=== PATIENT | female | born 1935 | race African-American/Black ===

== ENCOUNTER 2018-03-30 17:35 | Inpatient (IN) | payer OTHER ==
[~2018-03-30] VITALS: Ht 167.6 cm; Wt 65.4 kg
[~2018-03-30 17:35] MED LIST: ATOR10TA PO; CARV3.12 PO; CEPH-264 PO; LOSA25TA PO
--- NOTE | 2018-03-30 18:46 | PHYS DOC ---
Past Medical History Past Medical History: Arthritis, COPD, Diabetes-Type II, Heart Disease, Hypertension, UTI Past Surgical History: , Hysterectomy Alcohol Use: None Drug Use: None Adult General Chief Complaint Chief Complaint: WEAKNESS/GENERALIZED HPI HPI Patient is a 83 year old female who presents with generalized weakness. The patient lives at home with her daughter and granddaughter who provided her Gen. day today care. The granddaughter is present and is the primary historian. She reports that the patient has had some dyspnea and intermittent episodes of confusion over the last 48 hours area she has not had a fever, but her family reports that she has had similar symptoms in the past which were associated with urinary tract infections. Family has also noticed the patient to have some intermittent episodes of dyspnea over the same time. The patient currently denies complaints. No chest pain. She denies feeling short of breath subjectively although she does have mild increased work of breathing with simple short sentence conversations. The patient also is known to have significant osteoarthritis and frequently has flares for which she is treated with NSAID medications at home. Review of Systems Review of Systems Constitutional: Denies fever Eyes: Denies HENT: Denies nasal congestion Respiratory: Denies cough Cardiovascular: No additional information not addressed in HPI GI: Denies abdominal pain, nausea : Denies dysuria Musculoskeletal: Denies back pain Integument: Denies rash or skin lesions Neurologic: Denies headache, or focal neuro complaints Endocrine: Denies polyuria All other systems were reviewed and found to be within normal limits, except as documented in this note. Current Medications Current Medications Current Medications Medications (Trade) Dose Ordered Sig/Dread Start Time Stop Time Status Last Admin Dose Admin Sodium Chloride 500 ml @ 250 mls/hr 1X ONCE 03/30/18 20:00 03/30/18 21:59 DC 03/30/18 20:00 250 MLS/HR Allergies Allergies Allergies Coded Allergies Type Severity Reaction Last Updated Verified aspirin Allergy Intermediate 04/29/14 No Physical Exam Physical Exam Constitutional: Well developed, well nourished, no acute distress HENT: Normocephalic, atraumatic, bilateral external ears normal, oropharynx moist Eyes: PERRLA, EOMI, conjunctiva normal Neck: Normal range of motion, no JVD, no bruits Cardiovascular:Heart rate regular rhythm, no murmur Lungs & Thorax: Bilateral breath sounds clear to auscultation Abdomen: Bowel sounds normal, soft, no tenderness Skin: Warm, dry, no erythema Back: No tenderness Extremities: 2+ edema bilateral LE's Neurologic: Alert and oriented X 3, normal motor function Psychologic: Affect normal Current Patient Data Vital Signs Vital Signs Date Time Temp Pulse Resp B/P (MAP) Pulse Ox O2 Delivery O2 Flow Rate FiO2 03/30/18 21:13 85 18 93 03/30/18 17:53 97.7 135/96 (109) Room Air 97.7 Lab Values Laboratory Tests Test 03/30/18 18:42 03/30/18 19:43 03/30/18 20:30 Urine Collection Type U cath Urine Color Ashlee Urine Clarity Cloudy Urine pH 7.0 Urine Specific [place] 1.020 Urine Protein >=300 mg/dL (NEG-TRACE) Urine Glucose (UA) Negative mg/dL (NEG) Urine Ketones (Stick) Negative mg/dL (NEG) Urine Blood Trace (NEG) Urine Nitrite Negative (NEG) Urine Bilirubin Small (NEG) Urine Urobilinogen Dipstick 1.0 mg/dL (0.2 mg/dL) Urine Leukocyte Esterase Small (NEG) Urine RBC Occ /HPF (0-2) Urine WBC 1-4 /HPF (0-4) Urine Squamous Epithelial Cells Few /LPF Urine Bacteria Many /HPF (0-FEW) White Blood Count 6.8 x10^3/uL (4.0-11.0) Red Blood Count 4.84 x10^6/uL (3.50-5.40) Hemoglobin 13.9 g/dL (12.0-15.5) Hematocrit 42.8 % (36.0-47.0) Mean Corpuscular Volume 89 fL (79-100) Mean Corpuscular Hemoglobin 29 pg (25-35) Mean Corpuscular Hemoglobin Concent 33 g/dL (31-37) Red Cell Distribution Width 16.8 % (11.5-14.5) H Platelet Count 166 x10^3/uL (140-400) Neutrophils (%) (Auto) 79 % (31-73) H Lymphocytes (%) (Auto) 13 % (24-48) L Monocytes (%) (Auto) 7 % (0-9) Eosinophils (%) (Auto) 0 % (0-3) Basophils (%) (Auto) 1 % (0-3) Neutrophils # (Auto) 5.4 x10^3uL (1.8-7.7) Lymphocytes # (Auto) 0.9 x10^3/uL (1.0-4.8) L Monocytes # (Auto) 0.5 x10^3/uL (0.0-1.1) Eosinophils # (Auto) 0.0 x10^3/uL (0.0-0.7) Basophils # (Auto) 0.0 x10^3/uL (0.0-0.2) Sodium Level 147 mmol/L (136-145) H Potassium Level 4.0 mmol/L (3.5-5.1) Chloride Level 107 mmol/L (98-107) Carbon Dioxide Level 23 mmol/L (21-32) Anion Gap 17 (6-14) H Blood Urea Nitrogen 29 mg/dL (7-20) H Creatinine 1.2 mg/dL (0.6-1.0) H Estimated GFR (Cockcroft-Gault) 51.7 Glucose Level 108 mg/dL (70-99) H Calcium Level 9.5 mg/dL (8.5-10.1) Troponin I Quantitative 0.058 ng/mL (0.000-0.055) KC-Vfz-C-Type Natriuretic Peptide 13623 pg/mL (0-449) H Laboratory Tests 03/30/18 19:43 Laboratory Tests 03/30/18 20:30 EKG EKG Left BBB Interpretation Time: 18:20 Radiology/Procedures Radiology/Procedures FINDINGS: Heart is moderately enlarged in size. Ectatic thoracic aorta. There is a soft tissue density in the right hilum measuring 4.1 x 3.7 cm. Otherwise, lungs are clear. No pneumothorax or pleural effusion. Visualized bony thorax within normal limits. IMPRESSION: 1. No acute pulmonary process. 2. Soft tissue density in the right hilum may represent overlapping vascular shadows, lymphadenopathy or mass. Further evaluation with CT chest with IV contrast recommended. CT Head: No acute findings Course & Med Decision Making Course & Med Decision Making Pertinent Labs and Imaging studies reviewed. (See chart for details) Patient was evaluated in the emergency department for generalized weakness with some reported confusion over the last several days. The family did have concerns that this patient was having a urinary tract infection. Her urine did not appear overtly infected in the ER but a urine culture was sent. No antibiotics were started. The patient was noted to have mildly elevated troponin in the ER. Her EKG was not revealing for acute ST changes. Her BNP however was significantly elevated. She was given 40 of Lasix IV. Chest x-ray as documented above with some nonspecific findings. Recommendation was made for CT scan of the chest with IV contrast for further evaluation but this patient did not have adequate IV access to receive IV contrast. Non-con chest CT was completed. The patient was stuck multiple times for intravenous access. Ultrasound-guided attempts were also unsuccessful. Ultimately, a small 22-gauge was placed in the right EJ. Given her elevated troponin and dyspnea, patient was admitted to the hospital. I spoke to her primary physician's on-call partner , Dr. Pritchard, who agreed to admit the patient. Given her dyspnea, a V/Q scan was also ordered to be done on a routine basis tomorrow to rule out any thromboembolic disease. Dragon Disclaimer Dragon Disclaimer This electronic medical record was generated, in whole or in part, using a voice recognition dictation system. Departure Departure Referrals: NANCY PANG (PCP) OSEI STAPLES DO Mar 30, 2018 18:46
[2018-03-30 18:49] LABS: BILIRUBIN,URINE SMALL (NEG); CLARITY,URINE CLOUDY; COLOR,URINE AMBER; NITRITE,URINE NEGATIVE (NEG); PROTEIN,URINE >=300 mg/dL (NEG-TRACE)
[2018-03-30 18:53] LABS: BACTERIA,URINE MANY /HPF (0-FEW); RBC,URINE OCC /HPF (0-2)
[2018-03-30 18:54] LABS: SQUAMOUS EPITHELIAL CELL,UR FEW /LPF
[2018-03-30 19:54] LABS: BASO % 1 % (0-3); EOS % 0 % (0-3); HEMATOCRIT 42.8 % (36.0-47.0); HEMOGLOBIN 13.9 g/dL (12.0-15.5); LYMPH # 0.9 x10^3/uL (1.0-4.8); LYMPH % 13 % (24-48); MEAN CORPUSCULAR HEMOGLOBIN 29 pg (25-35); MEAN CORPUSCULAR HGB CONC 33 g/dL (31-37); MEAN CORPUSCULAR VOLUME 89 fL (79-100); MONO # 0.5 x10^3/uL (0.0-1.1); MONO % 7 % (0-9); NEUT # 5.4 x10^3uL (1.8-7.7); NEUT % 79 % (31-73); PLATELET COUNT 166 x10^3/uL (140-400); RED BLOOD COUNT 4.84 x10^6/uL (3.50-5.40); RED CELL DISTRIBUTION WIDTH 16.8 % (11.5-14.5); WHITE BLOOD COUNT 6.8 x10^3/uL (4.0-11.0)
[2018-03-30] MEDS ORDERED: IV NORMAL SALINE 500ML BAG 500 ML IV ONE (20:00)
--- NOTE | 2018-03-30 20:30 | RAD ---
Indication:WEAKNESS. HX HTN, COPD, CHF, DIABETES. NO PRIORS TECHNIQUE:Portable AP chest X-ray COMPARISON: 04/29/2014 FINDINGS: Heart is moderately enlarged in size. Ectatic thoracic aorta. There is a soft tissue density in the right hilum measuring 4.1 x 3.7 cm. Otherwise, lungs are clear. No pneumothorax or pleural effusion. Visualized bony thorax within normal limits. IMPRESSION: 1. No acute pulmonary process. 2. Soft tissue density in the right hilum may represent overlapping vascular shadows, lymphadenopathy or mass. Further evaluation with CT chest with IV contrast recommended. Electronically signed by: Anderson Ornelas DO (03/30/2018 8:27 PM) [facility]
[2018-03-30 20:52] LABS: CALCIUM 9.5 mg/dL (8.5-10.1); CREATININE 1.2 mg/dL (0.6-1.0); GFR 51.7
--- NOTE | 2018-03-30 21:13 | RAD ---
CT head without intravenous contrast History: Altered mental status. Comparison: CT head April 29, 2014. Technique: Axial images are obtained of the head from the skull base through the vertex without IV contrast. Exposure: One or more of the following individualized dose reduction techniques were utilized for this examination: 1. Automated exposure control 2. Adjustment of the mA and/or kV according to patient size 3. Use of iterative reconstruction technique Findings: The ventricles are appropriate in size, shape, and location for the patient's age. No obvious intracranial mass, mass-effect, midline shift, hemorrhage or obvious acute infarction is identified. Basilar cisterns are patent. Mild, patchy, nonspecific white matter low-attenuation seen, probably from chronic microvascular ischemic disease. Bone windows demonstrate no acute calvarial abnormality. The visualized paranasal sinuses appear clear. Impression: 1. No acute intracranial process. Please note that CT can be relatively insensitive to acute ischemic infarction for up to 24 hours after symptom onset. 2. Mild nonspecific white matter changes, probably from chronic microvascular ischemic disease. Electronically signed by: Osvaldo Marlow MD (03/30/2018 9:09 PM) [facility]
[2018-03-30] MEDS ORDERED: ONDANSETRON PF 4 MG/2 ML VIAL. IV PRN (22:00)
[2018-03-30] MEDS ORDERED: ACETAMINOPHEN 325 MG TABLET. PO PRN (22:00)
[2018-03-30] MEDS ORDERED: FUROSEMIDE 40 MG/4 ML VIAL. IVP ONE (23:55)
[2018-03-31] VITALS (7 sets, daily range): BP systolic 112–161; BP diastolic 57–96
--- NOTE | 2018-03-31 01:22 | RAD ---
EXAM: CT Chest without IV contrast CLINICAL HISTORY: possible hilar shadow or mass? CT follow-up of a prior radiographic abnormality. COMPARISON: Radiographs 03/30/2018, CT abdomen and pelvis 07/29/2007 TECHNIQUE: CT of the chest without intravenous contrast. Axial, coronal and sagittal reformatted images were generated. ---PQRS compliance statement - One or more of the following individualized dose reduction techniques were utilized for this study: 1. Automated exposure control 2. Adjustment of the mA and/or kV according to patient size 3. Use of iterative reconstruction technique--- FINDINGS: Lack of intravenous contrast limits evaluation of solid organs, vasculature, and lymph nodes. Chest: Moderate cardiomegaly. Coronary artery calcifications are seen. Trace right pleural effusion. No pneumothorax. Evaluation for mediastinal and hilar lymphadenopathy is limited on this noncontrast exam. Within these constraints no definite mediastinal or hilar lymphadenopathy. No axillary lymphadenopathy. Aorta is tortuous. Dependent opacities in the bilateral lungs likely scarring/atelectasis. No focal parenchymal airspace opacity. Calcified granuloma in the lingula is seen. Visualized Upper abdomen: Gallstones are seen within the gallbladder. Bones: Degenerative changes of the spine are seen. Mild height loss of the L2 vertebral body, age-indeterminate. IMPRESSION: 1. Evaluation for mediastinal/hilar abnormality is limited on this noncontrast exam. However the abnormality seen on prior chest radiograph in the hilum is favored to represent changes from prominent/tortuous aorta and pulmonary vessels. 2. Mild height loss of the L2 vertebral body, age-indeterminate. Electronically signed by: Neri Patel MD (03/31/2018 1:19 AM) [place] [id number]
[2018-03-31 04:36] LABS: CALCIUM 9.2 mg/dL (8.5-10.1); CREATININE 1.2 mg/dL (0.6-1.0); GFR 51.7; POTASSIUM 3.7 mmol/L (3.5-5.1)
[2018-03-31 04:44] LABS: BASO % 0 % (0-3); EOS % 0 % (0-3); HEMATOCRIT 38.7 % (36.0-47.0); HEMOGLOBIN 12.8 g/dL (12.0-15.5); LYMPH # 1.3 x10^3/uL (1.0-4.8); LYMPH % 18 % (24-48); MEAN CORPUSCULAR HEMOGLOBIN 29 pg (25-35); MEAN CORPUSCULAR HGB CONC 33 g/dL (31-37); MEAN CORPUSCULAR VOLUME 87 fL (79-100); MONO # 0.6 x10^3/uL (0.0-1.1); MONO % 9 % (0-9); NEUT # 5.3 x10^3uL (1.8-7.7); NEUT % 73 % (31-73); PLATELET COUNT 167 x10^3/uL (140-400); RED BLOOD COUNT 4.47 x10^6/uL (3.50-5.40); RED CELL DISTRIBUTION WIDTH 16.6 % (11.5-14.5); WHITE BLOOD COUNT 7.2 x10^3/uL (4.0-11.0)
--- NOTE | 2018-03-31 05:21 | EKG ---
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
[2018-03-31] MEDS ORDERED: ASPIRIN CHEWABLE 81 MG TABLET. PO ONE (09:00)
--- NOTE | 2018-03-31 09:36 | PDOC2 ---
JOAQUÍN LANG STORE CLERK CASHIER 03/31/18 0936: CARDIAC CONSULT DATE OF CONSULT Date of Consult DATE: 03/31/18 TIME: 09:23 REASON FOR CONSULT Reason for Consult: weakness, elevated trop REFERRING PHYSICIAN Referring Physician: Andres SOURCE Source: Chart review, Patient HISTORY OF PRESENT ILLNESS HISTORY OF PRESENT ILLNESS This is an 83 yo female admitted for complains of progressive weakness. Pt lives with family and currently pt is drowsy and just moans. Per chart review she has had increasing SOA and increasing confusion in the last few days. She does use NSAIDs. She is known for cardiomyopathy noted with 25% EF in 2013 but there was no known ischemic workup. There was no notation of chest pain, frequent falls or dizziness. PAST MEDICAL HISTORY Cardiovascular: CHF, HTN, Hyperlipidemia, Other (cardiomyopathy) Pulmonary: COPD Musculoskeletal: Osteoarthritis ENT: Other ([place]) Renal/: UTI Endocrine: Diabetes (2) PAST SURGICAL HISTORY Past Surgical History: , Hysterectomy SOCIAL HISTORY Smoke: Quit ALCOHOL: none Drugs: None Lives: with Family CURRENT MEDICATIONS CURRENT MEDICATIONS Current Medications Medications (Trade) Dose Ordered Sig/Dread Route PRN Reason Start Time Stop Time Status Last Admin Dose Admin Sodium Chloride 500 ml @ 250 mls/hr 1X ONCE IV 03/30/18 20:00 03/30/18 21:59 DC 03/30/18 20:00 Furosemide (Lasix) 40 mg 1X ONCE IVP 03/30/18 23:55 03/30/18 23:56 DC 03/31/18 00:13 ALLERGIES ALLERGIES: Coded Allergies: aspirin (Unverified Allergy, Intermediate, 04/29/14) ROS Review of System limited PHYSICAL EXAM General: No acute distress, Other (drowsy) Heart: Regular rate (SR LBBB), Other (4/6 systolic murmur to apex with displaced ) Extremities: Other (1+ bilateral LE pitting edema) Skin: No rashes Neuro: Other (nonverbal moans at times) Psych/Mental Status: Mental status NL, Mood NL MUSCULOSKELETAL: Osteoarthritic changes both hands VITALS VITALS Vital Signs Date Time Temp Pulse Resp B/P (MAP) Pulse Ox O2 Delivery O2 Flow Rate FiO2 03/31/18 07:00 96.7 86 20 133/95 (108) 95 Nasal Cannula 4.0 96.7 LABS Lab: Laboratory Tests Test 03/30/18 18:42 03/30/18 19:43 03/30/18 20:30 03/31/18 00:01 Urine Collection Type U cath Urine Color Ashlee Urine Clarity Cloudy Urine pH 7.0 Urine Specific [place] 1.020 Urine Protein >=300 mg/dL (NEG-TRACE) Urine Glucose (UA) Negative mg/dL (NEG) Urine Ketones (Stick) Negative mg/dL (NEG) Urine Blood Trace (NEG) Urine Nitrite Negative (NEG) Urine Bilirubin Small (NEG) Urine Urobilinogen Dipstick 1.0 mg/dL (0.2 mg/dL) Urine Leukocyte Esterase Small (NEG) Urine RBC Occ /HPF (0-2) Urine WBC 1-4 /HPF (0-4) Urine Squamous Epithelial Cells Few /LPF Urine Bacteria Many /HPF (0-FEW) White Blood Count 6.8 x10^3/uL (4.0-11.0) Red Blood Count 4.84 x10^6/uL (3.50-5.40) Hemoglobin 13.9 g/dL (12.0-15.5) Hematocrit 42.8 % (36.0-47.0) Mean Corpuscular Volume 89 fL (79-100) Mean Corpuscular Hemoglobin 29 pg (25-35) Mean Corpuscular Hemoglobin Concent 33 g/dL (31-37) Red Cell Distribution Width 16.8 % (11.5-14.5) Platelet Count 166 x10^3/uL (140-400) Neutrophils (%) (Auto) 79 % (31-73) Lymphocytes (%) (Auto) 13 % (24-48) Monocytes (%) (Auto) 7 % (0-9) Eosinophils (%) (Auto) 0 % (0-3) Basophils (%) (Auto) 1 % (0-3) Neutrophils # (Auto) 5.4 x10^3uL (1.8-7.7) Lymphocytes # (Auto) 0.9 x10^3/uL (1.0-4.8) Monocytes # (Auto) 0.5 x10^3/uL (0.0-1.1) Eosinophils # (Auto) 0.0 x10^3/uL (0.0-0.7) Basophils # (Auto) 0.0 x10^3/uL (0.0-0.2) Sodium Level 147 mmol/L (136-145) Potassium Level 4.0 mmol/L (3.5-5.1) Chloride Level 107 mmol/L (98-107) Carbon Dioxide Level 23 mmol/L (21-32) Anion Gap 17 (6-14) Blood Urea Nitrogen 29 mg/dL (7-20) Creatinine 1.2 mg/dL (0.6-1.0) Estimated GFR (Cockcroft-Gault) 51.7 Glucose Level 108 mg/dL (70-99) Calcium Level 9.5 mg/dL (8.5-10.1) Troponin I Quantitative 0.058 ng/mL (0.000-0.055) 0.055 ng/mL (0.000-0.055) QX-Xar-W-Type Natriuretic Peptide 10968 pg/mL (0-449) Test 03/31/18 01:00 03/31/18 03:50 Troponin I Quantitative 0.062 ng/mL (0.000-0.055) 0.057 ng/mL (0.000-0.055) White Blood Count 7.2 x10^3/uL (4.0-11.0) Red Blood Count 4.47 x10^6/uL (3.50-5.40) Hemoglobin 12.8 g/dL (12.0-15.5) Hematocrit 38.7 % (36.0-47.0) Mean Corpuscular Volume 87 fL (79-100) Mean Corpuscular Hemoglobin 29 pg (25-35) Mean Corpuscular Hemoglobin Concent 33 g/dL (31-37) Red Cell Distribution Width 16.6 % (11.5-14.5) Platelet Count 167 x10^3/uL (140-400) Neutrophils (%) (Auto) 73 % (31-73) Lymphocytes (%) (Auto) 18 % (24-48) Monocytes (%) (Auto) 9 % (0-9) Eosinophils (%) (Auto) 0 % (0-3) Basophils (%) (Auto) 0 % (0-3) Neutrophils # (Auto) 5.3 x10^3uL (1.8-7.7) Lymphocytes # (Auto) 1.3 x10^3/uL (1.0-4.8) Monocytes # (Auto) 0.6 x10^3/uL (0.0-1.1) Eosinophils # (Auto) 0.0 x10^3/uL (0.0-0.7) Basophils # (Auto) 0.0 x10^3/uL (0.0-0.2) Sodium Level 141 mmol/L (136-145) Potassium Level 3.7 mmol/L (3.5-5.1) Chloride Level 105 mmol/L (98-107) Carbon Dioxide Level 23 mmol/L (21-32) Anion Gap 13 (6-14) Blood Urea Nitrogen 28 mg/dL (7-20) Creatinine 1.2 mg/dL (0.6-1.0) Estimated GFR (Cockcroft-Gault) 51.7 Glucose Level 142 mg/dL (70-99) Calcium Level 9.2 mg/dL (8.5-10.1) ECHOCARDIOGRAM ECHOCARDIOGRAM <Conclusion> The left ventricle is normal size. Left ventricle systolic function is severely impaired. The Ejection Fraction is 25%. There is mild concentric left ventricular hypertrophy. There is no significant aortic valvular stenosis. Doppler and Color Flow revealed mild to moderate aortic regurgitation. Doppler and Color-flow revealed mild to moderate mitral regurgitation. Doppler and Color Flow revealed mild tricuspid valve regurgitation. The pulmonary artery systolic pressure is estimated at less than 30 mmHg. There is no evidence of significant pericardial effusion. DATE: 04/30/14 184 ASSESSMENT/PLAN ASSESSMENT/PLAN 1. Metabolic encephalopathy with dementia: unknown baseline mentation 2. Recurrent UTI? 3. Debility: ?FTT 4. Acute on Chronic systolic CHF: appears compensated. 5. Mildly elevated troponin: Peaked at 0.06 likely demand mediated, type 2. with chronic LBBB. No notation of CP 6. CKD3/macroalbuminuria 7. Hx of cardiomyopathy: past known EF at 25%. no known intervention 8. HTN: controlled 9. DM2/HLP: per PCP Recommendations 1. restart home meds. Unable to ascertain ASA allergy. If truly allergic then will place on plavix 2. TTE, TSH, lipids, Mg 3. Received lasix in ED. Swallowing needs no to be ascertained when pt is more awake. Await TTE and will place on routine lasix. 4. With advanced age, dementia and debility recommend conservative measures. Secondary prevention measures ALVARO COKER MD 04/01/18 1014: CARDIAC CONSULT ASSESSMENT/PLAN ASSESSMENT/PLAN Patient seen and examined 03/31/18. Agree with [employer]'s assessment and plan. Acute on chronic systolic heart failure better compensated 2-D echo showed LVEF 15-20% Agree with conservative management secondary to age and comorbidities Continue current treatment for UTI and metabolic encephalopathy per IM Thank you for your consultation JOAQUÍN LANG APRN Mar 31, 2018 09:36 ALVARO COKER MD Apr 01, 2018 10:14
--- NOTE | 2018-03-31 09:44 | PDOC ---
Provider Note Provider Note Pt seen.H&P done. #[id number] KRIS LAGOS MD Mar 31, 2018 09:44
[2018-03-31] MEDS ORDERED: DEXTROSE 50% 25 GM / 50ML DISP.SYRIN. IV PRN (09:45)
--- NOTE | 2018-03-31 10:18 | HP ---
ADMIT DATE: 03/30/2018 LOCATION: [facility] REASON FOR ADMISSION TO THE HOSPITAL: Congestive heart failure, elevated troponin, elevated BNP, possible UTI. HISTORY OF PRESENT ILLNESS: The patient is an 83-year-old female patient who lives at home, taken care by the family and she says she has been weak for the last couple of days, confused, was brought to the hospital. Her BNP was elevated to more than 2000. Troponin was borderline elevation. Urine shows trace leukocytes. The patient was admitted to the hospital, had a CT of the chest. CT of the head was negative. The patient has a history of chronic systolic heart failure, 25% on echo 4 years ago. PAST MEDICAL HISTORY: History of hypertension, heart disease, diabetes, COPD, arthritis, UTI. PAST SURGICAL HISTORY: Hysterectomy, . ALLERGIES: ASPIRIN. MEDICATIONS AT HOME: Atorvastatin 10 mg daily, Coreg 3.125 twice a day, losartan 25 mg daily. PERSONAL HISTORY: No history of smoking, alcohol, drug abuse. FAMILY HISTORY: Unremarkable. REVIEW OF SYSTEMS: The patient is very lethargic to review of symptoms. FAMILY HISTORY: Not available. PHYSICAL EXAMINATION: GENERAL: Elderly female. The patient is very lethargic, does not talk much, opens her eyes. VITAL SIGNS: Temperature 97, pulse 89, respirations 18, blood pressure 133/96, 93 on room air. HEENT: Head is atraumatic. Pupils are equal. Oral cavity, one or two teeth present. NECK: Supple. CHEST: Symmetrical. CARDIOVASCULAR: S1, S2. LUNGS: Clear. ABDOMEN: Soft, bowel sounds present, no mass palpable. EXTERNAL GENITALIA: No [place]. RECTAL: Deferred. EXTREMITIES: Edema in both feet and lower extremities, 1+. The patient's staff reports the patient has no good hygiene in the private areas. LABORATORY DATA: Shows a white count 7, hemoglobin 14, platelets 166. Electrolytes show sodium 147, potassium 4.0, chloride 107, bicarbonate 23, anion gap 17, BUN 29, creatinine 1.2. 0.5 troponin and then BNP was 14,821. Urine shows trace leukocyte esterase. Chest x-ray negative. EKG done, report is pending. CT head negative. FINAL IMPRESSION: 1. Chronic systolic heart failure. 2. Slight elevation in troponin. 3. Hypertension. 4. Hyperlipidemia. 5. History of diabetes. 6. Possible urinary tract infection. 7. General debility. 8. Poor general hygiene. PLAN: At this time, was to admit to the hospital, seen by Cardiology, had a CT chest and was negative. Get a V/Q scan, venous Doppler. Add echo, repeat again, IV Rocephin for UTI and waiting for the cultures to come back. KRIS LAGOS MD DR: BOBBI/desirae JOB#: [id number] / [id number] NANCY Ovalles
[2018-03-31] MEDS: ENOXAPARIN 40 MG/0.4 ML SYRINGE. SQ SCH (11:40)
[2018-03-31] MEDS: LACTOBACILLUS RHAMNOSUS GG 1 CAPSULE. PO SCH ×2 (11:40→21:28)
[2018-03-31] MEDS: cefTRIAXone IV Push 1 GM VIAL. IVP SCH (11:41)
[2018-03-31] MEDS: CARVEDILOL 3.125 MG TABLET. PO SCH ×2 (11:42→16:30)
[2018-03-31] MEDS: LOSARTAN POTASSIUM 25 MG TABLET. PO SCH (11:54)
[2018-03-31] MEDS: INSULIN LISPRO 300 UNITS/3 ML INSULN.PEN. SQ SCH ×2 (12:00→17:00)
--- NOTE | 2018-03-31 12:15 | CARD ---
MR#: [id number] Date of Study: 03/31/2018 Ordering Physician: KRIS LAGOS, Referring Physician: KRIS LAOGS, Tech: Tracy Welsh APPROVED REPORT EXAM: Two-dimensional and M-mode echocardiogram with Doppler and color Doppler. Other Information Quality : GoodHR: 79bpm INDICATION Congestive Heart Failure 2D DIMENSIONS RVDd2.1 (2.9-3.5cm)Left Atrium(2D)4.6 (1.6-4.0cm) IVSd0.9 (0.7-1.1cm)Aortic Root(2D)2.8 (2.0-3.7cm) LVDd6.5 (3.9-5.9cm)LVOT Diameter2.1 (1.8-2.4cm) PWd1.3 (0.7-1.1cm)LVDs5.9 (2.5-4.0cm) FS (%) 9.6 %SV44.6 ml LVEF(%)20.5 (>50%) Aortic Valve AoV Peak Jean Marie.171.6cm/sAoV VTI23.3cm AO Peak GR.11.8mmHgLVOT VTI 13.92cm AO Mean GR.6mmHgAI P 1/2 Vtgi192wz Mitral Valve MV E Ksaftisp664.4cm/sMV DECEL SREX993lw MV A Xgvedgic32.2cm/sE/A Ratio1.4 TDI Lateral E' P. V4.89cm/sMedial E' P. V6.44cm/s E/Lateral E'23.4E/Medial E'17.8 Tricuspid Valve TR P. Dscnfeiu788hu/sRAP PFMJXUKD35slMb TR Peak Gr.44mmHg Pulmonary Vein S1 Ypaxwsml16.4cm/sS2 Hsgfvkzn23.03cm/s D2 Ozslrjho89.0cm/s LEFT VENTRICLE The Left Ventricle is severely dilated. There is normal left ventricular wall thickness. The ejection fraction is severely impaired. The Ejection Fraction is 15-20%. There is global hypokinesis of the l eft ventricle. Tissue Doppler imaging reveals severe left ventricular diastolic dysfunction. RIGHT VENTRICLE The right ventricle is normal size. There is normal right ventricular wall thickness. The right ventr icular systolic function is normal. ATRIA The left atrium is moderately dilated. The right atrium size is normal. The interatrial septum is int act with no evidence for an atrial septal defect or patent foramen ovale as noted on 2-D or Doppler i maging. AORTIC VALVE The aortic valve is calcified and appears trileaflet. Doppler and Color Flow revealed trace aortic re gurgitation. There is no significant aortic valvular stenosis. MITRAL VALVE The mitral valve is calcified and displays decreased opening. There is no mitral valve stenosis. Dopp ler and Color-flow revealed trace mitral regurgitation. TRICUSPID VALVE The tricuspid valve leaflets are thickened , but open well. Doppler and Color Flow revealed trace tri cuspid regurgitation. RVSP 50 mm Hg There is no tricuspid valve stenosis. PULMONIC VALVE The pulmonic valve is not well visualized. Doppler and Color Flow revealed trace pulmonic valvular re gurgitation. There is no pulmonic valvular stenosis. GREAT VESSELS The aortic root is normal in size. The IVC is dilated and collapses <50% with inspiration. PERICARDIAL EFFUSION There is no evidence of significant pericardial effusion. Critical Notification Critical Value: Yes <Conclusion> The Left Ventricle is severely dilated. The ejection fraction is severely impaired. The Ejection Fraction is 15-20%. There is global hypokinesis of the left ventricle. Doppler and Color Flow revealed trace tricuspid regurgitation. RVSP 50 mm Hg The IVC is dilated and collapses <50% with inspiration. Signed by : Edgar Mclaughlin, Electronically Approved : 03/31/2018 12:14:25
--- NOTE | 2018-03-31 12:35 | RAD ---
Ventilation/perfusion lung scan, 03/31/2018: HISTORY: Dyspnea The ventilation study was performed utilizing 17 mCi of xenon-133. There is decreased ventilation of the left lung compared to the right. Correlation with the current chest radiographs indicate that much of this is due to the enlarged heart and thoracic aorta. Activity in both lungs is heterogeneous. Perfusion imaging was performed utilizing 6 mCi of technetium 99m MAA. There is relatively decreased perfusion in the left lung compared to the right, similar to that seen on the ventilation study. Due to the patient's poor clinical condition images were obtained with the patient's arms down by her side producing decreased activity on the lateral perfusion views. No definite unmatched segmental perfusion defects are seen. IMPRESSION: 1. Decreased ventilation and perfusion in the left chest. 2. Limited exam demonstrating no definite pulmonary emboli. CTA of the chest may be useful for further evaluation, if clinically indicated. Electronically signed by: Stuart Malik MD (03/31/2018 12:31 PM) [facility]
--- NOTE | 2018-03-31 14:08 | RAD ---
EXAM: Bilateral lower extremity venous Doppler sonogram. HISTORY: Edema. TECHNIQUE: Perkins scale and color Doppler sonographic evaluation of the bilateral lower extremity veins with spectral waveform analysis was performed. FINDINGS: There is normal color flow, normal compressibility and there are normal spectral waveforms in the common femoral, superficial femoral, popliteal, posterior tibial and greater saphenous veins. IMPRESSION: No Doppler evidence of lower extremity deep venous thrombosis. Electronically signed by: Breanna Varela MD (03/31/2018 2:05 PM) [place] [id number]
[2018-03-31] MEDS: FUROSEMIDE 40 MG TABLET. PO SCH (18:00)
[2018-03-31] MEDS ORDERED: ATORVASTATIN CALCIUM 10 MG TABLET. PO SCH (21:00)
[2018-04-01 03:25] VITALS: BP 112/64
[2018-04-01 05:04] LABS: ALBUMIN 2.9 g/dL (3.4-5.0); ALBUMIN/GLOBULIN RATIO 0.9 (1.0-1.7); CALCIUM 8.6 mg/dL (8.5-10.1); GFR 63.8; POTASSIUM 3.1 mmol/L (3.5-5.1); TOTAL BILIRUBIN 0.8 mg/dL (0.2-1.0); TOTAL PROTEIN 6.2 g/dL (6.4-8.2)
[2018-04-01 05:07] LABS: CHOLESTEROL/HDL RATIO 4.1
[2018-04-01 07:00] VITALS: BP 123/64
[2018-04-01] MEDS ORDERED: ASPIRIN CHEWABLE 81 MG TABLET. PO SCH (08:00)
[2018-04-01] MEDS ORDERED: POTASSIUM CHLORIDE 20 MEQ TABLET.ER. PO ONE ×3 (08:00→12:15)
[2018-04-01] MEDS: INSULIN LISPRO 300 UNITS/3 ML INSULN.PEN. SQ SCH ×3 (08:00→17:00)
[2018-04-01] MEDS ORDERED: MAGNESIUM SULFATE 2GM 50 ML IV ONE (08:30)
[2018-04-01] MEDS: FUROSEMIDE 40 MG TABLET. PO SCH (09:23)
[2018-04-01] MEDS: MAGNESIUM OXIDE 400 MG TABLET PO SCH ×2 (09:23→17:02)
[2018-04-01] MEDS: LACTOBACILLUS RHAMNOSUS GG 1 CAPSULE. PO SCH ×2 (09:23→20:45)
[2018-04-01] MEDS: CARVEDILOL 3.125 MG TABLET. PO SCH ×2 (09:24→17:03)
[2018-04-01] MEDS: LOSARTAN POTASSIUM 25 MG TABLET. PO SCH (09:28)
[2018-04-01] MEDS: ENOXAPARIN 40 MG/0.4 ML SYRINGE. SQ SCH (09:32)
[2018-04-01] MEDS: cefTRIAXone IV Push 1 GM VIAL. IVP SCH (09:33)
--- NOTE | 2018-04-01 09:48 | PDOC ---
PROGRESS NOTES Subjective Subjective says 1-2 words not conversational Objective Objective Vital Signs Date Time Temp Pulse Resp B/P (MAP) Pulse Ox O2 Delivery O2 Flow Rate FiO2 04/01/18 09:28 74 123/64 04/01/18 07:00 97.4 18 97 Room Air 97.4 03/31/18 20:30 2.0 Intake and Output 04/01/18 07:00 Intake Total 100 ml Balance 100 ml Intake Oral 100 ml # Voids 6 Physical Exam Abdomen: Normal bowel sounds, Soft Heart: Regular rate (SR LBBB), Normal S1, Normal S2, Other (4/6 systolic murmur to apex with displaced ) Extremities: Other (1+ bilateral LE pitting edema) General: No acute distress, Other (drowsy) MUSCULOSKELETAL: Osteoarthritic changes both hands Neuro: Other (nonverbal moans at times) Psych/Mental Status: Mental status NL, Mood NL Skin: No rashes Diagnosis Problem List Problems Medical Problems: (1) Congestive heart failure Status: Acute (2) Dyspnea Status: Acute Assessment Assessment Problems Medical Problems: (1) Congestive heart failure Status: Acute (2) Dyspnea Status: IMP: Acute chf systolic heart failure 20% uti? dementia low pot 3.1 PLAN:IV Rocephin for possible UTI,c/s pending replace pot and mag echo 20% V/Q scan neg for PE venous doppler neg for DVT Palliative team consult for goals of care Plan Plan of Care Problems Medical Problems: (1) Congestive heart failure Status: Acute (2) Dyspnea Status: Acute Comment Review of Relevant I have reviewed the following items atiya (where applicable) has been applied. Labs Laboratory Tests Test 03/31/18 12:04 03/31/18 17:32 03/31/18 20:45 04/01/18 03:30 Glucose (Fingerstick) 78 mg/dL (70-99) 85 mg/dL (70-99) 102 mg/dL (70-99) Sodium Level 145 mmol/L (136-145) Potassium Level 3.1 mmol/L (3.5-5.1) Chloride Level 106 mmol/L (98-107) Carbon Dioxide Level 26 mmol/L (21-32) Anion Gap 13 (6-14) Blood Urea Nitrogen 21 mg/dL (7-20) Creatinine 1.0 mg/dL (0.6-1.0) Estimated GFR (Cockcroft-Gault) 63.8 BUN/Creatinine Ratio 21 (6-20) Glucose Level 85 mg/dL (70-99) Calcium Level 8.6 mg/dL (8.5-10.1) Magnesium Level 1.7 mg/dL (1.8-2.4) Total Bilirubin 0.8 mg/dL (0.2-1.0) Aspartate Amino Transf (AST/SGOT) 12 U/L (15-37) Alanine Aminotransferase (ALT/SGPT) 13 U/L (14-59) Alkaline Phosphatase 65 U/L (46-116) Total Protein 6.2 g/dL (6.4-8.2) Albumin 2.9 g/dL (3.4-5.0) Albumin/Globulin Ratio 0.9 (1.0-1.7) Triglycerides Level 74 mg/dL (0-150) Cholesterol Level 177 mg/dL (0-200) LDL Cholesterol, Calculated 119 mg/dL (0-100) VLDL Cholesterol, Calculated 15 mg/dL (0-40) Non-HDL Cholesterol Calculated 134 mg/dL (0-129) HDL Cholesterol 43 mg/dL (40-60) Cholesterol/HDL Ratio 4.1 Thyroid Stimulating Hormone (TSH) 1.093 uIU/mL (0.358-3.74) Test 04/01/18 07:29 Glucose (Fingerstick) 78 mg/dL (70-99) Medications Current Medications Aspirin (Children'S Aspirin) 81 mg DAILYWBKFT PO ; Start 04/01/18 at 08:00; Stop 04/01/18 at 08:00; Status DC Atorvastatin Calcium (Lipitor) 10 mg QHS PO Last administered on 03/31/18at 21: 28; Start 03/31/18 at 21:00; Stop 04/01/18 at 07:46; Status DC Atorvastatin Calcium (Lipitor) 20 mg QHS PO ; Start 04/01/18 at 21:00 Ceftriaxone Sodium 1 gm/ Dextrose 50 ml @ 100 mls/hr Q24H IV ; Start 03/31/18 at 09:45; Status UNV Ceftriaxone Sodium (Rocephin) 1 gm Q24H IVP Last administered on 04/01/18at 09: 33; Start 03/31/18 at 10:00 Dextrose (Dextrose 50%-Water Syringe) 12.5 gm PRN Q15MIN PRN IV SEE COMMENTS; Start 03/31/18 at 09:45 Enoxaparin Sodium (Lovenox 40mg Syringe) 40 mg Q24H SQ Last administered on at 09:32; Start 03/31/18 at 10:00 Furosemide (Lasix) 40 mg DAILY PO Last administered on 04/01/18at 09:23; Start 03/31/18 at 18:00 Insulin Human Lispro (HumaLOG) 0-7 UNITS TIDWMEALS SQ ; Start 03/31/18 at 12:00 Lactobacillus Rhamnosus (Culturelle) 1 cap BID PO Last administered on at 09:23; Start 03/31/18 at 10:00 Magnesium Oxide (Magnesium Oxide) 400 mg BID94 PO Last administered on at 09:23; Start 04/01/18 at 09:00; Stop 04/01/18 at 21:00 Magnesium Sulfate 50 ml @ 25 mls/hr 1X ONCE IV ; Start 04/01/18 at 08:30; Stop 04/01/18 at 09:11; Status DC Magnesium Sulfate/ Dextrose 100 ml @ 100 mls/hr 1X ONCE IV ; Start 04/01/18 at 10:00; Stop 04/01/18 at 10:59 Potassium Chloride (Klor-Con) 20 meq 1X ONCE PO ; Start 04/01/18 at 12:15; Stop 04/01/18 at 12:16 Potassium Chloride (Klor-Con) 20 meq DAILYWBKFT PO ; Start 04/02/18 at 08:00 Potassium Chloride (Klor-Con) 40 meq 1X ONCE PO Last administered on at 09:28; Start 04/01/18 at 08:00; Stop 04/01/18 at 08:01; Status DC Potassium Chloride (Klor-Con) 40 meq 1X ONCE PO ; Start 04/01/18 at 10:00; Stop 04/01/18 at 10:01 Vitals/I & O Vital Sign - Last 24 Hours 03/31/18 03/31/18 03/31/18 03/31/18 11:00 11:42 11:54 15:00 Temp 97.9 97.9 Pulse 59 72 80 76 Resp 20 22 B/P (MAP) 161/96 (117) 161/96 166/96 121/70 (87) Pulse Ox 100 98 O2 Delivery Nasal Cannula Room Air O2 Flow Rate 4.0 03/31/18 03/31/18 03/31/18 03/31/18 16:30 19:50 20:30 23:16 Temp 97.6 97.6 Pulse 73 68 77 Resp 22 18 B/P (MAP) 121/70 112/57 (75) 112/57 (75) Pulse Ox 98 98 O2 Delivery Nasal Cannula Nasal Cannula Room Air O2 Flow Rate 4.0 2.0 04/01/18 04/01/18 04/01/18 04/01/18 03:25 07:00 09:24 09:28 Temp 98.3 97.4 98.3 97.4 Pulse 81 74 74 74 Resp 18 18 B/P (MAP) 112/64 (80) 123/64 (83) 123/64 123/64 Pulse Ox 96 97 O2 Delivery Room Air Room Air Intake and Output 03/31/18 03/31/18 04/01/18 15:00 23:00 07:00 Intake Total 100 ml Balance 100 ml KRIS LAGOS MD Apr 01, 2018 09:48
[2018-04-01] MEDS ORDERED: MAGNESIUM SULFATE 1GM 100 ML IV ONE (10:00)
[2018-04-01 11:11] VITALS: BP 123/64
--- NOTE | 2018-04-01 14:21 | PDOC ---
JOAQUÍN LANG JOURNEY[employer] 04/01/18 1421: CARDIO Progress Notes Date and Time Date of Service 04/01/2018 Time of Evaluation 1140 Subjective Subjective: No Chest Pain, No shortness of breath, No Palpitations Vitals Vitals Vital Signs Date Time Temp Pulse Resp B/P (MAP) Pulse Ox O2 Delivery O2 Flow Rate FiO2 04/01/18 11:11 80 18 123/64 (83) 98 Room Air 04/01/18 07:00 97.4 97.4 03/31/18 20:30 2.0 Weight Weight [ ] Input and Output Intake and Output Intake and Output 04/01/18 07:00 Intake Total 100 ml Balance 100 ml Intake Oral 100 ml # Voids 6 Laboratory Labs Laboratory Tests Test 03/31/18 17:32 03/31/18 20:45 04/01/18 03:30 04/01/18 07:29 Glucose (Fingerstick) 85 mg/dL (70-99) 102 mg/dL (70-99) 78 mg/dL (70-99) Sodium Level 145 mmol/L (136-145) Potassium Level 3.1 mmol/L (3.5-5.1) Chloride Level 106 mmol/L (98-107) Carbon Dioxide Level 26 mmol/L (21-32) Anion Gap 13 (6-14) Blood Urea Nitrogen 21 mg/dL (7-20) Creatinine 1.0 mg/dL (0.6-1.0) Estimated GFR (Cockcroft-Gault) 63.8 BUN/Creatinine Ratio 21 (6-20) Glucose Level 85 mg/dL (70-99) Calcium Level 8.6 mg/dL (8.5-10.1) Magnesium Level 1.7 mg/dL (1.8-2.4) Total Bilirubin 0.8 mg/dL (0.2-1.0) Aspartate Amino Transf (AST/SGOT) 12 U/L (15-37) Alanine Aminotransferase (ALT/SGPT) 13 U/L (14-59) Alkaline Phosphatase 65 U/L (46-116) Total Protein 6.2 g/dL (6.4-8.2) Albumin 2.9 g/dL (3.4-5.0) Albumin/Globulin Ratio 0.9 (1.0-1.7) Triglycerides Level 74 mg/dL (0-150) Cholesterol Level 177 mg/dL (0-200) LDL Cholesterol, Calculated 119 mg/dL (0-100) VLDL Cholesterol, Calculated 15 mg/dL (0-40) Non-HDL Cholesterol Calculated 134 mg/dL (0-129) HDL Cholesterol 43 mg/dL (40-60) Cholesterol/HDL Ratio 4.1 Thyroid Stimulating Hormone (TSH) 1.093 uIU/mL (0.358-3.74) Test 04/01/18 11:22 Glucose (Fingerstick) 84 mg/dL (70-99) Physical Exam HEENT: Neck Supple W Full Motion Chest: Symmetric LUNGS: Other (diminished bases) Heart: S1S2, RRR (SR LBBB) Abdomen: Soft N/T Extremities: No Calf Tenderness, Other (1+ bilateral LE pitting edema) Neurology: alert, follow commands Assessment Assessment 1. Metabolic encephalopathy with dementia: unknown baseline mentation 2. Recurrent UTI 3. Debility/FTT 4. Acute on Chronic systolic CHF: compensated 5. Mildly elevated troponin: Peaked at 0.06 likely demand mediated, type 2. with chronic LBBB. No notation of CP 6. CKD3/macroalbuminuria 7. Hx of cardiomyopathy: 15-20%.with past EF of 25% no known intervention 8. HTN: controlled 9. DM2/HLP: per PCP Recommendations 1. allergy to ASA. Start plavix. Continue coreg, lasix, statin, losartan and K supplement. Replace Mg. 2. With advanced age, dementia and debility recommend conservative measures. Secondary prevention measures 3. Palliative consult pending to note goals of care ALVARO COKER MD 04/01/18 1556: CARDIO Progress Notes Assessment Assessment Patient seen and examined. Agree with PRODUCTION LINE SOLDERER's assessment and plan. Slight troponin elevation probably demand ischemia Doubt ACS based on presentation. Plan conservative management. Continue current treatment for UTI per JOAQUÍN SAENZ APRN Apr 01, 2018 14:21 ALVARO COKER MD Apr 01, 2018 15:56
[2018-04-01] MEDS ORDERED: CLOPIDOGREL BISULFATE 75 MG TABLET PO SCH (14:30)
[2018-04-01 15:11] VITALS: BP 141/56
[2018-04-01 19:00] VITALS: BP 115/58
[2018-04-01] MEDS: ATORVASTATIN CALCIUM 20 MG TABLET PO SCH (20:45)
[2018-04-01 23:14] LABS: HEMOGLOBIN A1C 5.1 % (4.8-5.6)
[2018-04-01 23:27] VITALS: BP 112/63
[2018-04-02 02:24] VITALS: BP 110/67
[2018-04-02 07:22] VITALS: BP 111/59
[2018-04-02] MEDS: INSULIN LISPRO 300 UNITS/3 ML INSULN.PEN. SQ SCH ×3 (08:00→17:00)
[2018-04-02] MEDS: POTASSIUM CHLORIDE 20 MEQ TABLET.ER. PO SCH (08:37)
[2018-04-02] MEDS: CARVEDILOL 3.125 MG TABLET. PO SCH ×2 (08:37→17:36)
[2018-04-02] MEDS: CLOPIDOGREL BISULFATE 75 MG TABLET PO SCH (08:37)
[2018-04-02] MEDS: LOSARTAN POTASSIUM 25 MG TABLET. PO SCH (08:37)
[2018-04-02] MEDS: FUROSEMIDE 40 MG TABLET. PO SCH (08:38)
[2018-04-02] MEDS: LACTOBACILLUS RHAMNOSUS GG 1 CAPSULE. PO SCH ×2 (08:38→20:27)
[2018-04-02 08:55] LABS: GFR 63.8; POTASSIUM 3.6 mmol/L (3.5-5.1)
[2018-04-02 10:29] VITALS: BP 107/62
--- NOTE | 2018-04-02 10:30 | PDOC ---
IM PROGRESS NOTES- Subjective Subjective No complaints of pain, dyspnea or dizziness. Objective Vitals Vital Signs Date Time Temp Pulse Resp B/P (MAP) Pulse Ox O2 Delivery O2 Flow Rate FiO2 04/02/18 08:37 73 111/59 04/02/18 08:10 Room Air 04/02/18 07:22 97.7 16 100 97.7 Input & Output Intake and Output 04/02/18 07:00 Intake Total 250 ml Balance 250 ml Intake Oral 250 ml # Voids 3 Physical Exam Physical Exam General appearance - alert, chronically ill appearing, and in no distress and oriented to person, place, and time Mental Status - alert, oriented to person, place, and time, affect appropriate to mood Head - normal Chest - clear to auscultation, no wheezes, rales or rhonchi, symmetric air entry Heart - S1 and S2 normal Abdomen - soft, nontender, nondistended, no masses or organomegaly Neurological - alert and oriented Musculoskeletal - no muscular tenderness noted Extremities - trace pedal edema Skin - warm and dry Labs Laboratory Tests Test 03/31/18 12:04 03/31/18 17:32 03/31/18 20:45 04/01/18 03:30 Glucose (Fingerstick) 78 mg/dL (70-99) 85 mg/dL (70-99) 102 mg/dL (70-99) Sodium Level 145 mmol/L (136-145) Potassium Level 3.1 mmol/L (3.5-5.1) Chloride Level 106 mmol/L (98-107) Carbon Dioxide Level 26 mmol/L (21-32) Anion Gap 13 (6-14) Blood Urea Nitrogen 21 mg/dL (7-20) Creatinine 1.0 mg/dL (0.6-1.0) Estimated GFR (Cockcroft-Gault) 63.8 BUN/Creatinine Ratio 21 (6-20) Glucose Level 85 mg/dL (70-99) Hemoglobin A1c 5.1 % (4.8-5.6) Calcium Level 8.6 mg/dL (8.5-10.1) Magnesium Level 1.7 mg/dL (1.8-2.4) Total Bilirubin 0.8 mg/dL (0.2-1.0) Aspartate Amino Transf (AST/SGOT) 12 U/L (15-37) Alanine Aminotransferase (ALT/SGPT) 13 U/L (14-59) Alkaline Phosphatase 65 U/L (46-116) Total Protein 6.2 g/dL (6.4-8.2) Albumin 2.9 g/dL (3.4-5.0) Albumin/Globulin Ratio 0.9 (1.0-1.7) Triglycerides Level 74 mg/dL (0-150) Cholesterol Level 177 mg/dL (0-200) LDL Cholesterol, Calculated 119 mg/dL (0-100) VLDL Cholesterol, Calculated 15 mg/dL (0-40) Non-HDL Cholesterol Calculated 134 mg/dL (0-129) HDL Cholesterol 43 mg/dL (40-60) Cholesterol/HDL Ratio 4.1 Thyroid Stimulating Hormone (TSH) 1.093 uIU/mL (0.358-3.74) Test 04/01/18 07:29 04/01/18 11:22 04/01/18 17:00 04/01/18 20:52 Glucose (Fingerstick) 78 mg/dL (70-99) 84 mg/dL (70-99) 118 mg/dL (70-99) 122 mg/dL (70-99) Test 04/02/18 08:06 04/02/18 08:15 Glucose (Fingerstick) 91 mg/dL (70-99) Sodium Level 143 mmol/L (136-145) Potassium Level 3.6 mmol/L (3.5-5.1) Chloride Level 104 mmol/L (98-107) Carbon Dioxide Level 27 mmol/L (21-32) Anion Gap 12 (6-14) Blood Urea Nitrogen 20 mg/dL (7-20) Creatinine 1.0 mg/dL (0.6-1.0) Estimated GFR (Cockcroft-Gault) 63.8 Glucose Level 93 mg/dL (70-99) Calcium Level 9.0 mg/dL (8.5-10.1) Laboratory Tests Test 04/01/18 11:22 04/01/18 17:00 04/01/18 20:52 04/02/18 08:06 Glucose (Fingerstick) 84 mg/dL (70-99) 118 mg/dL (70-99) 122 mg/dL (70-99) 91 mg/dL (70-99) Test 04/02/18 08:15 Sodium Level 143 mmol/L (136-145) Potassium Level 3.6 mmol/L (3.5-5.1) Chloride Level 104 mmol/L (98-107) Carbon Dioxide Level 27 mmol/L (21-32) Anion Gap 12 (6-14) Blood Urea Nitrogen 20 mg/dL (7-20) Creatinine 1.0 mg/dL (0.6-1.0) Estimated GFR (Cockcroft-Gault) 63.8 Glucose Level 93 mg/dL (70-99) Calcium Level 9.0 mg/dL (8.5-10.1) Meds Current Medications Atorvastatin Calcium (Lipitor) 20 mg QHS PO Last administered on 04/01/18at 20: 45; Start 04/01/18 at 21:00 Clopidogrel Bisulfate (Plavix) 75 mg DAILYWBKFT PO ; Start 04/01/18 at 14:30; Status Cancel Clopidogrel Bisulfate (Plavix) 75 mg DAILYWBKFT PO Last administered on at 08:37; Start 04/02/18 at 08:00 Potassium Chloride (Klor-Con) 20 meq 1X ONCE PO ; Start 04/01/18 at 12:15; Stop 04/01/18 at 12:16; Status DC Potassium Chloride (Klor-Con) 20 meq DAILYWBKFT PO Last administered on at 08:37; Start 04/02/18 at 08:00 Assessment Assessment Problems Medical Problems: (1) Congestive heart failure Status: Acute (2) Dyspnea Status: IMP: Acute chf systolic heart failure 20% uti? dementia low pot 3.1 PLAN:IV Rocephin for possible UTI, urine culture shows Escherichia coli sensitivity is pending. Hypokalemia- Lachelle is improving and has increased from 3.12 3.6. Continue potassium supplements. Hypomagnesemiaorder magnesium level echo 20% V/Q scan neg for PE venous doppler neg for DVT Palliative team consult for goals of care Plan Plan For more details regarding further plans, please refer to the orders. SAILAJA LIMON MD Apr 02, 2018 10:30
[2018-04-02] MEDS: ENOXAPARIN 40 MG/0.4 ML SYRINGE. SQ SCH (11:23)
[2018-04-02] MEDS: cefTRIAXone IV Push 1 GM VIAL. IVP SCH (11:24)
[2018-04-02 14:53] VITALS: BP 108/63
[2018-04-02 19:39] VITALS: BP 108/68
[2018-04-02] MEDS: ATORVASTATIN CALCIUM 20 MG TABLET PO SCH (20:27)
[2018-04-02 22:39] VITALS: BP 110/67
[2018-04-03 03:49] VITALS: BP 125/62
[2018-04-03 05:01] LABS: CALCIUM 8.5 mg/dL (8.5-10.1); CREATININE 1.2 mg/dL (0.6-1.0); GFR 51.7; POTASSIUM 3.4 mmol/L (3.5-5.1)
[2018-04-03 07:15] VITALS: BP 110/60
[2018-04-03] MEDS: INSULIN LISPRO 300 UNITS/3 ML INSULN.PEN. SQ SCH ×3 (08:00→17:00)
[2018-04-03] MEDS: POTASSIUM CHLORIDE 20 MEQ TABLET.ER. PO SCH ×3 (08:19→15:17)
[2018-04-03] MEDS: CEFPODOXIME PROXETIL 100 MG TABLET. PO SCH ×2 (08:19→20:39)
[2018-04-03] MEDS: CLOPIDOGREL BISULFATE 75 MG TABLET PO SCH (08:19)
[2018-04-03] MEDS: LOSARTAN POTASSIUM 25 MG TABLET. PO SCH (08:19)
[2018-04-03] MEDS: LACTOBACILLUS RHAMNOSUS GG 1 CAPSULE. PO SCH ×2 (08:19→20:40)
[2018-04-03] MEDS: CARVEDILOL 3.125 MG TABLET. PO SCH ×2 (08:20→17:20)
[2018-04-03] MEDS: ENOXAPARIN 40 MG/0.4 ML SYRINGE. SQ SCH (08:20)
[2018-04-03] MEDS: FUROSEMIDE 40 MG TABLET. PO SCH (08:20)
--- NOTE | 2018-04-03 09:11 | PDOC ---
IM PROGRESS NOTES- Subjective Subjective No complaints of pain, dyspnea or dizziness. Objective Vitals Vital Signs Date Time Temp Pulse Resp B/P (MAP) Pulse Ox O2 Delivery O2 Flow Rate FiO2 04/03/18 08:20 85 110/60 04/03/18 07:15 97.7 18 97 Room Air 97.7 Input & Output Intake and Output 04/03/18 07:00 Intake Total 600 ml Output Total 200 ml Balance 400 ml Intake Oral 600 ml Output Urine Total 200 ml # Voids 2 Physical Exam Physical Exam General appearance - alert, chronically ill appearing, and in no distress and oriented to person, place, and time Mental Status - alert, oriented to person, place, and time, affect appropriate to mood Head - normal Chest - clear to auscultation, no wheezes, rales or rhonchi, symmetric air entry Heart - S1 and S2 normal Abdomen - soft, nontender, nondistended, no masses or organomegaly Neurological - alert and oriented Musculoskeletal - no muscular tenderness noted Extremities - trace pedal edema Skin - warm and dry Labs Laboratory Tests Test 04/01/18 11:22 04/01/18 17:00 04/01/18 20:52 04/02/18 08:06 Glucose (Fingerstick) 84 mg/dL (70-99) 118 mg/dL (70-99) 122 mg/dL (70-99) 91 mg/dL (70-99) Test 04/02/18 08:15 04/02/18 11:50 04/02/18 16:52 04/02/18 20:26 Sodium Level 143 mmol/L (136-145) Potassium Level 3.6 mmol/L (3.5-5.1) Chloride Level 104 mmol/L (98-107) Carbon Dioxide Level 27 mmol/L (21-32) Anion Gap 12 (6-14) Blood Urea Nitrogen 20 mg/dL (7-20) Creatinine 1.0 mg/dL (0.6-1.0) Estimated GFR (Cockcroft-Gault) 63.8 Glucose Level 93 mg/dL (70-99) Calcium Level 9.0 mg/dL (8.5-10.1) Magnesium Level 1.7 mg/dL (1.8-2.4) Glucose (Fingerstick) 113 mg/dL (70-99) 81 mg/dL (70-99) 142 mg/dL (70-99) Test 04/03/18 04:30 04/03/18 07:30 Sodium Level 143 mmol/L (136-145) Potassium Level 3.4 mmol/L (3.5-5.1) Chloride Level 104 mmol/L (98-107) Carbon Dioxide Level 30 mmol/L (21-32) Anion Gap 9 (6-14) Blood Urea Nitrogen 21 mg/dL (7-20) Creatinine 1.2 mg/dL (0.6-1.0) Estimated GFR (Cockcroft-Gault) 51.7 Glucose Level 113 mg/dL (70-99) Calcium Level 8.5 mg/dL (8.5-10.1) Glucose (Fingerstick) 103 mg/dL (70-99) Laboratory Tests Test 04/02/18 11:50 04/02/18 16:52 04/02/18 20:26 04/03/18 04:30 Glucose (Fingerstick) 113 mg/dL (70-99) 81 mg/dL (70-99) 142 mg/dL (70-99) Sodium Level 143 mmol/L (136-145) Potassium Level 3.4 mmol/L (3.5-5.1) Chloride Level 104 mmol/L (98-107) Carbon Dioxide Level 30 mmol/L (21-32) Anion Gap 9 (6-14) Blood Urea Nitrogen 21 mg/dL (7-20) Creatinine 1.2 mg/dL (0.6-1.0) Estimated GFR (Cockcroft-Gault) 51.7 Glucose Level 113 mg/dL (70-99) Calcium Level 8.5 mg/dL (8.5-10.1) Test 04/03/18 07:30 Glucose (Fingerstick) 103 mg/dL (70-99) Meds Current Medications Cefpodoxime Proxetil (Vantin) 100 mg BID PO Last administered on 04/03/18at 08: 19; Start 04/03/18 at 09:00 Potassium Chloride (Klor-Con) 20 meq BID92 PO ; Start 04/03/18 at 09:00 Assessment Assessment Problems Medical Problems: (1) Congestive heart failure Status: Acute (2) Dyspnea Status: IMP: Acute chf systolic heart failure 20% uti dementia Hypokalemia PLAN:IV Rocephin for possible UTI, urine culture shows Escherichia coli sensitivity is pending. Hypokalemia-potassium level is 3.4. Increase Potassium supplements. Hypomagnesemiaorder magnesium level echo 20% V/Q scan neg for PE venous doppler neg for DVT Palliative team consult for goals of care- family wants to send her to a facility for a week and then transfer her back home. Plan Plan For more details regarding further plans, please refer to the orders. SAILAJA LIMON MD Apr 03, 2018 09:11
[2018-04-03] MEDS: MAGNESIUM OXIDE 400 MG TABLET PO SCH ×2 (09:48→20:42)
[2018-04-03 10:48] VITALS: BP 98/64
[2018-04-03 15:10] VITALS: BP 104/60
[2018-04-03 19:00] VITALS: BP 119/63
[2018-04-03] MEDS: ATORVASTATIN CALCIUM 20 MG TABLET PO SCH (20:40)
[2018-04-03 23:00] VITALS: BP 103/65
[2018-04-04 03:00] VITALS: BP 111/69
[2018-04-04 06:38] LABS: CALCIUM 8.9 mg/dL (8.5-10.1); CREATININE 1.1 mg/dL (0.6-1.0); GFR 57.1; POTASSIUM 4.2 mmol/L (3.5-5.1)
[2018-04-04 07:45] VITALS: BP 123/69
[2018-04-04] MEDS: INSULIN LISPRO 300 UNITS/3 ML INSULN.PEN. SQ SCH ×3 (08:00→18:31)
[2018-04-04] MEDS: FUROSEMIDE 40 MG TABLET. PO SCH (08:22)
[2018-04-04] MEDS: MAGNESIUM OXIDE 400 MG TABLET PO SCH (08:22)
[2018-04-04] MEDS: CLOPIDOGREL BISULFATE 75 MG TABLET PO SCH (08:22)
[2018-04-04] MEDS: LACTOBACILLUS RHAMNOSUS GG 1 CAPSULE. PO SCH (08:22)
[2018-04-04] MEDS: CARVEDILOL 3.125 MG TABLET. PO SCH ×2 (08:23→17:00)
[2018-04-04] MEDS: LOSARTAN POTASSIUM 25 MG TABLET. PO SCH (08:23)
[2018-04-04] MEDS: POTASSIUM CHLORIDE 20 MEQ TABLET.ER. PO SCH ×2 (08:24→14:42)
--- NOTE | 2018-04-04 09:30 | PDOC ---
PROGRESS NOTES Subjective Subjective pt feels better, smiling and talking today Objective Objective Vital Signs Date Time Temp Pulse Resp B/P (MAP) Pulse Ox O2 Delivery O2 Flow Rate FiO2 04/04/18 08:23 77 123/69 04/04/18 07:45 98.2 16 98 Room Air 98.2 Intake and Output 04/04/18 07:00 Intake Total 940 ml Balance 940 ml Intake Oral 940 ml # Voids 4 Physical Exam Abdomen: Normal bowel sounds, Soft Heart: Regular rate (SR LBBB), Normal S1, Normal S2, Other (4/6 systolic murmur to apex with displaced ) Extremities: Other (1+ bilateral LE pitting edema) General: No acute distress, Other (drowsy) MUSCULOSKELETAL: Osteoarthritic changes both hands Neuro: Other (nonverbal moans at times) Psych/Mental Status: Mental status NL, Mood NL Skin: No rashes Diagnosis Problem List Problems Medical Problems: (1) Congestive heart failure Status: Acute (2) Dyspnea Status: Acute Assessment Assessment Problems Medical Problems: (1) Congestive heart failure Status: Acute (2) Dyspnea Status: IMP: Acute chf systolic heart failure 20% uti -E coli dementia Hypokalemia PLAN:, d/c plans for today. urine culture shows Escherichia coli sensitive to keflex Hypokalemia-potassium level is 3.4. Increase Potassium supplements. Hypomagnesemiaorder magnesium level echo 20% V/Q scan neg for PE venous doppler neg for DVT Palliative team consult for goals of care- family wants to send her to a facility for a week and then transfer her back home. Plan Plan of Care Problems Medical Problems: (1) Congestive heart failure Status: Acute (2) Dyspnea Status: Acute Comment Review of Relevant I have reviewed the following items atiya (where applicable) has been applied. Labs Laboratory Tests Test 04/03/18 11:43 04/03/18 16:37 04/03/18 20:38 04/04/18 05:30 Glucose (Fingerstick) 114 mg/dL (70-99) 116 mg/dL (70-99) 144 mg/dL (70-99) Sodium Level 140 mmol/L (136-145) Potassium Level 4.2 mmol/L (3.5-5.1) Chloride Level 104 mmol/L (98-107) Carbon Dioxide Level 27 mmol/L (21-32) Anion Gap 9 (6-14) Blood Urea Nitrogen 20 mg/dL (7-20) Creatinine 1.1 mg/dL (0.6-1.0) Estimated GFR (Cockcroft-Gault) 57.1 Glucose Level 105 mg/dL (70-99) Calcium Level 8.9 mg/dL (8.5-10.1) Test 04/04/18 07:26 Glucose (Fingerstick) 99 mg/dL (70-99) Microbiology 03/30/18 Urine Culture - Final, Complete 03/30/18 Urine Culture Result 1 (XIOMARA) - Final, Complete 03/30/18 Antimicrobic Susceptibility - Final, Complete Medications Current Medications Magnesium Oxide (Magnesium Oxide) 400 mg BID PO Last administered on at 08:22; Start 04/03/18 at 10:00 Vitals/I & O Vital Sign - Last 24 Hours 04/03/18 04/03/18 04/03/18 04/03/18 10:48 15:10 17:20 19:00 Temp 97.5 97.5 97.5 97.5 97.5 97.5 Pulse 79 74 74 87 Resp 18 18 18 B/P (MAP) 98/64 (75) 104/60 (75) 104/60 119/63 (81) Pulse Ox 98 98 97 O2 Delivery Room Air Room Air Room Air 04/03/18 04/03/18 04/04/18 04/04/18 19:05 23:00 03:00 07:45 Temp 97.5 98.3 98.2 97.5 98.3 98.2 Pulse 81 83 77 Resp 16 16 16 B/P (MAP) 103/65 (78) 111/69 (83) 123/69 (87) Pulse Ox 97 95 98 O2 Delivery Room Air Room Air Room Air Room Air 04/04/18 04/04/18 08:23 08:23 Pulse 77 77 B/P (MAP) 123/69 123/69 Intake and Output 04/03/18 04/03/18 04/04/18 15:00 23:00 07:00 Intake Total 480 ml 300 ml 160 ml Balance 480 ml 300 ml 160 ml KRIS LAGOS MD Apr 04, 2018 09:30
[2018-04-04] MEDS ORDERED: POTA20TA4 PO (09:36)
[2018-04-04] MEDS ORDERED: MAGN400T22 PO (09:36)
[2018-04-04] MEDS ORDERED: FURO40TA4 PO (09:36)
--- NOTE | 2018-04-04 09:42 | DISCH ---
DISCHARGE DISCHARGE INFORMATION: DISCHARGE DATE: Apr 04, 2018 FINAL DIAGNOSIS Problems Medical Problems: (1) Congestive heart failure Status: Acute (2) Dyspnea Status: Acute CONDITION ON DISCHARGE: Stable CODE STATUS: Code Status: DNR/DNI CORRECTION: SNF STAY <30 DAYS: Yes HOSPICE: HOSPICE: Yes HOSPICE EVAL & TREAT: Yes POST DISCHARGE ORDERS: ACTIVITY ORDERS: Activity as tolerated DIET AFTER DISCHARGE: ADA CHECKS AFTER DISCHARGE: CHECKS AFTER DISCHARGE: Check blood press - daily FOLLOW-UP: PHYSICIAN FOLLOW-UP: pcp in 1 -2 weeks TREATMENT/EQUIPMENT ORDERS: Physical Therapy For: Evalulation/Treatment DISCHARGE MEDICATIONS: Home Meds Active Scripts Losartan Potassium (COZAAR) 25 Mg Tablet, 25 MG PO DAILY, #30 Prov:KRIS LAGOS MD 05/01/14 Cephalexin (KEFLEX) 500 Mg Capsule, 500 MG PO TID, #20 Prov:KRIS LAGOS MD 05/01/14 Carvedilol (COREG) 3.125 Mg Tablet, 3.125 MG PO BIDWMEALS, #60 Prov:KRIS LAGOS MD 05/01/14 Atorvastatin Calcium (LIPITOR) 10 Mg Tablet, 10 MG PO QHS, #30 Prov:KRIS LAGOS MD 05/01/14 KRIS LAGOS MD Apr 04, 2018 09:42
--- NOTE | 2018-04-04 09:51 | PDOC ---
Provider Note Provider Note Discharge summary dictated. #[id number] KRIS LAGOS MD Apr 04, 2018 09:51
[2018-04-04] MEDS: ENOXAPARIN 40 MG/0.4 ML SYRINGE. SQ SCH (10:00)
[2018-04-04 10:33] VITALS: BP 101/64
--- NOTE | 2018-04-04 11:00 | DS ---
DATE OF DISCHARGE: 04/04/2018 REASON FOR ADMISSION TO THE HOSPITAL: 1. Congestive heart failure. 2. Change in mental status 3. Urinary tract infection. HISTORY OF PRESENT ILLNESS: The patient is an 83-year-old female, has a history of heart failure, and she is on medications for that. She has been debilitating at home, bedridden, not eating, not be awake, was brought to the hospital by the paramedics. The patient had elevated BNP, and echocardiogram shows ejection fraction 15-20%, 3 years ago, it was 20-25%. Because of her general poor functional status, no further cardiac workup was warranted. Continue medical treatment. She was found to have urinary tract infection, E. coli, initially treated with IV Rocephin, changed to p.o. once sensitivities are available to Keflex. The patient had a CBC that was normal. Electrolytes, potassium was low, replaced; magnesium was low, replaced. A1c 5.1. TSH was normal. Lipid, LDL 119, cholesterol 177 and HDL is 43. The patient had a Doppler of lower extremities negative for DVT, had a V/Q scan negative for PE. Had a CT chest, no abnormality was noted. Has L2 vertebral body slight compression. Chest x-ray shows prominence of the hilum, but CT was negative. On the whole, the patient's condition improved, and the family preferred hospice and may be snu with hospice. FINAL DIAGNOSES: 1. Congestive heart failure, acute on chronic systolic heart failure,20% ejf. 2. Urinary tract infection with E coli. 3. Mental status changes secondary to urinary tract infection. 4. Hyperlipidemia. 5. General debility poor functional status. 6. Electrolyte imbalance including low potassium and magnesium, replaced. DISPOSITION: To home vs snu with hospice, poor prognosis. KRIS LAGOS MD DR: BOBBI/desirae JOB#: [id number] / [id number] DR KUMAR Ovalles
[2018-04-04] MEDS: CEFPODOXIME PROXETIL 100 MG TABLET. PO SCH (11:28)
[2018-04-04 14:24] VITALS: BP 97/57
[2018-04-04 17:00] VITALS: BP 97/57
== END 2018-04-04 18:59 | disposition hospice, home (50) | DRG 871 ==
LOC: ER 17:35 → 2 NORTH 21:50
PROVIDERS: ADMIT Internal Medicine; ATTEND Internal Medicine
DX: A41.9 Sepsis, unspecified organism (principal); I50.23 Acute on chronic systolic (congestive) heart failure; G93.41 Metabolic encephalopathy; I13.0 Hypertensive heart and chronic kidney disease with heart failure and stage 1 through stage 4 chronic kidney disease, or unspecified chronic kidney disease; N39.0 Urinary tract infection, site not specified; I42.8 Other cardiomyopathies; B96.20 Unspecified Escherichia coli [E. coli] as the cause of diseases classified elsewhere; E11.22 Type 2 diabetes mellitus with diabetic chronic kidney disease; E87.6 Hypokalemia; E78.5 Hyperlipidemia, unspecified; F03.90 Unspecified dementia, unspecified severity, without behavioral disturbance, psychotic disturbance, mood disturbance, and anxiety; J44.9 Chronic obstructive pulmonary disease, unspecified; M19.90 Unspecified osteoarthritis, unspecified site; N18.3 Chronic kidney disease, stage 3 (moderate); Z74.01 Bed confinement status; Z90.710 Acquired absence of both cervix and uterus; Z87.440 Personal history of urinary (tract) infections; Z79.899 Other long term (current) drug therapy; Z88.6 Allergy status to analgesic agent; I44.7 Left bundle-branch block, unspecified
CPT/HCPCS: 36415; 51701; 70450; 71045; 71250; 78582; 80048; 80053; 80061; 81001; 82962; 83036; 83735; 83880; 84443; 84484; 85025; 87086; 87186; 93005; 93306; 93970; 96361; 96374; A9540; A9558; J0696; J1650; J1940; J7040; 99285-25